=== PATIENT | male | born 1965 | race American Indian/Alaskan Native ===

== ENCOUNTER 2020-05-16 10:52 | Day surgery (SDC) | payer OTHER ==
[~2020-05-16 10:52] MED LIST: ACETAMINOPHEN 500 MG TAB PO SCH; BUPIVACAINE/PF (0.5%) 5 MG/1 ML 30 ML VIAL INFILTRATI ONE; GABAPENTIN 300 MG CAP PO NR; LIDOCAINE (1%) 10 MG/1 ML VIAL 20 ML MDV ONE; SODIUM CHLORIDE 0.9% 1000 ML 1,000 ML IV SCH; ceFAZolin/Water 2 GM/20 ML 2 GM/20 ML SYRINGE IV NR
[2020-05-16] MEDS ORDERED: GABAPENTIN 500 MG/10 ML ORAL LIQD PO NR (11:04)
[2020-05-16] MEDS ORDERED: fentaNYL 100 MCG/2 ML INJ IV PRN (11:16)
[2020-05-16] MEDS ORDERED: ONDANSETRON 4 MG/2 ML INJ IV PRN (11:16)
--- NOTE | 2020-05-16 11:16 | Anesthesia Consultation ---
Anesthesia Consult and Med Hx Date of service: 05/16/20 - Airway Anesthetic Teeth Evaluation: Good ROM Head & Neck: Adequate Mental/Hyoid Distance: Adequate Mallampati Class: Class III Intubation Access Assessment: Possibly Difficult - Pulmonary Exam CTA: Yes - Cardiac Exam Cardiac Exam: RRR - Pre-Operative Health Status ASA Pre-Surgery Classification: ASA3 Proposed Anesthetic Plan: General - Pulmonary Hx Smoking: No Hx Respiratory Symptoms: No Hx Sleep Apnea: No (VIDA PRE SCREEN HIGH RISK) - Cardiovascular System Hx Hypertension: Yes (took all antihypertensives this morning) Hx Heart Attack/AMI: No Hx Percutaneous Transluminal Coronary Angioplasty (PTCA): No Hx Cardia Arrhythmia: No - Central Nervous System CVA: No - Endocrine Hx End Stage Renal Disease: Yes (last HD 05/14/20) Hx Liver Disease: No Hx Insulin Dependent Diabetes: Yes Hx Thyroid Disease: No - Other Systems Hx Obesity: No - Additional Comments Anesthesia Medical History Comments: No hx anesthetic complications.
--- NOTE | 2020-05-16 11:16 | Anesthesia Day of Surgery ---
Anesthesia Day of Surgery - Day of Surgery Patient Examined: Yes Patient H&P Reviewed: Yes Patient is NPO: Yes Beta Blockers: Yes (carvedilol today AM)
[2020-05-16 11:45] LABS: Hematocrit 38.8 % (35.5-45.6); Hemoglobin 12.9 gm/dl (11.8-15.2); Mean Corpuscular HGB Conc 33 % (32-34); Mean Corpuscular Volume 96 fl (84-94); Platelet Count 172 K/mm3 (140-440); Red Blood Count 4.04 M/mm3 (3.65-5.03); Red Cell Distribution Width 14.7 % (13.2-15.2)
[2020-05-16 11:54] LABS: Calcium 9.1 mg/dL (8.4-10.2)
[2020-05-16] MEDS: MIDAZOLAM 2 MG/2 ML INJ IV NR ×2 (12:01→12:25)
[2020-05-16] MEDS ORDERED: HYDROmorphone 1 MG/1 ML INJ ONE (12:16)
[2020-05-16] MEDS ORDERED: ROCURONIUM 50 MG/5 ML INJ IV ONE ×2 (12:17→15:01)
[2020-05-16] MEDS ORDERED: LIDOCAINE MPF (2%) 20 MG/1 ML VIAL 5 ML ONE (12:17)
[2020-05-16] MEDS ORDERED: propofoL 200 MG/20 ML VIAL IV ONE (12:17)
[2020-05-16] MEDS ORDERED: HEPARIN 10,000 UNIT/1 ML VIAL ONE (12:22)
[2020-05-16] MEDS ORDERED: BUPIVACAINE/PF (0.5%) 5 MG/1 ML 30 ML VIAL INFILTRATI ONE (14:01)
[2020-05-16] MEDS ORDERED: LIDOCAINE (1%) 10 MG/1 ML VIAL 20 ML MDV INFILTRATI ONE (14:01)
[2020-05-16] MEDS ORDERED: WATER FOR IRRIG STERILE 1,500 ML BOTTLE IR ONE (14:02)
[2020-05-16] MEDS ORDERED: NEOSTIGMINE 10MG/10 ML INJ MDV ONE (15:01)
[2020-05-16] MEDS ORDERED: GLYCOPYRROLATE 0.4 MG/2 ML INJ ONE ×2 (15:01→15:07)
--- NOTE | 2020-05-16 15:03 | Short Stay Summary ---
Short Stay Documentation Date of service: 05/16/20 - History Principal diagnosis: incisional hernia, malfunctioning PD catheter H&P: obtained from office - Allergies and Medications Current Medications: Allergies lisinopril Allergy (Verified 05/11/20 12:16) COUGH Home Medications Medication Instructions Recorded Confirmed Last Taken Type Aspartame 10 gm MC DAILY 05/11/20 05/11/20 05/15/20 History Furosemide [Lasix TAB] 80 mg PO DAILY 05/11/20 05/11/20 05/15/20 History Insulin Glargine [Lantus VIAL] 0 units SUB-Q QHS 05/11/20 05/11/20 05/15/20 History Losartan [Cozaar] 50 mg PO QDAY 05/11/20 05/11/20 05/16/20 10:00 History NIFEdipine [Nifedipine ER] 60 mg PO DAILY 05/11/20 05/11/20 05/16/20 10:00 History Sevelamer Carbonate [Renvela] 800 mg PO TID 05/11/20 05/11/20 05/15/20 History Vit B Complx C/Folic Acid/Zinc 1 tab PO DAILY 05/11/20 05/11/20 05/15/20 History [Dialyvite 800-Zinc 15 mg Tab] carvediloL [Coreg] 25 mg PO BID 05/11/20 05/11/20 05/16/20 10:00 History hydrALAZINE [Apresoline] 25 mg PO TID 05/11/20 05/11/20 05/15/20 History Active Medications Acetaminophen (Tylenol) 1,000 mg PO PREOP CAROL Stop: 05/16/20 23:59 Last Admin: 05/16/20 11:48 Dose: 1,000 mg Documented by: Fentanyl (Sublimaze) 50 mcg IV Q5MIN PRN PRN Reason: Pain , Severe (7-10) Gabapentin (Gabapentin) 100 mg PO PREOP NR Stop: 05/16/20 15:00 Last Admin: 05/16/20 11:48 Dose: 100 mg Documented by: Cefazolin Sodium (Ancef/Sterile Water 2 Gm/20 Ml) 2 gm in 20 mls @ 80 mls/hr IV PREOP NR Stop: 05/16/20 18:00 Sodium Chloride (Nacl 0.9% 1000 Ml) 1,000 mls @ 42 mls/hr IV DIRECT CAROL Stop: 05/16/20 23:59 Last Admin: 05/16/20 11:30 Dose: 42 mls/hr Documented by: Midazolam HCl (Versed) 2 mg IV PREOP NR Stop: 05/16/20 23:59 Last Admin: 05/16/20 12:25 Dose: 2 mg Documented by: Ondansetron HCl (Zofran) 4 mg IV ONCE PRN PRN Reason: Nausea And Vomiting - Brief post op/procedure progress note Date of procedure: 05/16/20 Pre-op diagnosis: incisional hernia, malfunctioning PD catheter Post-op diagnosis: same Procedure: diagnostic laparoscopy, lysis of adhesions, primary repair of incisional hernia Anesthesia: GETA, local Findings: 1. Dense adhesions from from bowel, omentum, liver to anterior abdominal wall and pelvis 2. Portion of intraabdominal PD catheter visible (encased in fibrous capsule) but pelvic portion not visible due to dense adhesions 3. 2 cm infraumbilical incisional hernia Surgeon: TITUS JONES (Beau Parrish, [employer] LE[employer] 1st assist) Estimated blood loss: minimal Pathology: none Condition: stable - Hospital course Hospital course: Pt observed in PACU and discharged to home in stable condition when criteria met - Disposition Condition at discharge: Good Disposition: DC-01 TO HOME OR SELFCARE Short Stay Discharge Plan Activity: other (no heavy lifting x4-6 weeks) Diet: renal Wound: open to air Additional Instructions: Discharge instructions: Diet: Renal Activity: You are encouraged to walk and may go up and down the steps. Do not do any heavy lifting of more than 15 lbs for next 4-[address] if you are taking prescription, narcotic pain medications. Showering: You may shower in 1 day. Pat incisions dry, do not scrub. Do not submerge incision in bathtub, pool, hottub for 2 weeks. Wound care instructions: There is glue on your incisions which will fall off on its own. Pain medications: You are encouraged to use over the counter pain medications like Tylenol or i buprofen as directed on the bottle. You have been given a prescription for Crawford to use for pain not controlled with over the counter pain medications. If you have any unused Crawford, please return to your pharmacy to have is discarded. You may use ice pack to incisions to help with pain and bruising. Reasons to call Surgeons office: If you have fevers >100.4 If you are having increasing abdominal pain or vomiting If you have pain that is not controlled with prescription pain medications If you have drainage if pus or redness around the incisions. When to come back to see your Surgeon: Please call the office ([phone]) to make an appointment to see the surgeon in 2 week. Call if you have any questions. 11 [facility] Ground floor Follow up with: [facility] [Primary Care Provider] - 7 Days TITUS JONES DO [Staff Physician] - 14 Days Prescriptions: HYDROcodone/APAP 5-325 [[place] 5/325] 1 each PO Q6HR PRN #20 tablet PRN Reason: Pain
[2020-05-16] MEDS ORDERED: ONDANSETRON 4 MG/2 ML INJ ONE (15:07)
--- NOTE | 2020-05-16 16:15 | Operative Report ---
Operative Report Operative Report: Date of procedure: 05/16/20 Pre-op diagnosis: incisional hernia, malfunctioning PD catheter Post-op diagnosis: same Procedure: diagnostic laparoscopy, lysis of adhesions, primary repair of incisional hernia Anesthesia: GETA, local Findings: 1. Dense adhesions from from bowel, omentum, liver to anterior abdominal wall and pelvis 2. Portion of intraabdominal PD catheter visible (encased in fibrous capsule) but pelvic portion not visible due to dense adhesions 3. 2 cm infraumbilical incisional hernia Surgeon: TITUS JONES (Beau Parrish, [employer]ICE [employer] LEAD 1st assist) Estimated blood loss: minimal Pathology: none Condition: stable Hospital course: Pt observed in PACU and discharged to home in stable condition when criteria met HPI and indication: 54-year-old male with history of end-stage renal disease who was referred to the surgery clinic by the [place] for evaluation of nonfunctioning peritoneal dialysis catheter and a periumbilical incisional hernia. The patient had a recent hospitalization for peritonitis associated with the PD catheter which was managed with antibiotics. After this episode the PD catheter was no longer functioning and it was felt that he would require surgery for revision versus replacement. Preoperative CT scan was reviewed which showed the peritoneal dialysis catheter coiled in the pelvis and a small periumbilical hernia containing a knuckle of nonobstructed small bowel. I discussed a diagnostic laparoscopy with the patient with lysis of adhesions to possibly free up the catheter. We also discussed repair of the incisional hernia at the same time with possible use of mesh. The possibility of removing the catheter was also briefly discussed. All risk, benefits, alternatives to surgery were discussed with the patient and questions answered. Consent was obtained. Procedure in detail: The patient was identified in the preoperative area, taken back to operating room, and placed on the operating room table in supine position. After anesthesia was induced, a Carter catheter was sterilely placed b y the circulating nurse. The abdomen was prepped and draped in the usual sterile fashion and timeout performed. Patient had a right sided peritoneal dialysis catheter which was prepped into the field as well. Local anesthetic was infiltrated into skin at the intended incision sites. A Left upper quadrant incision was made at Booker's point through which a Veress needle was inserted. The Veress needle position was confirmed using the saline drop test and the abdomen insufflated to 15 mmHg without incident. Veress needle was then removed and a 5 mm Optiview trocar placed through the incision. The abdomen was inspected and there was no underlying injury to any abdominal structures. Upon inspection of the abdomen the small bowel, the majority of the omentum, a portion of the stomach, and the liver were densely adhered to the anterior abdominal wall. Only the upper portion of the abdomen could be visualized as the remainder of the abdomen was obscured by these adhesions. No additional ports could be placed. At this point I decided to perform a cutdown at the umbilicus at the known incisional hernia. Local anesthetic infiltrated to skin at the intended incision site. A infraumbilical incision was made through the patient's old surgical scar using a 15 blade. Dissection was carried down through the skin and subcutaneous tissue using Bovie electrocautery until the hernia was encountered. The hernia sac was gently dissected from the underside of the umbilicus with great care to prevent injury to the umbilical skin. A small incision was made in the hernia sac and using a gloved finger, gentle blunt dissection was performed in order to free of any adhesions to the peritoneum in the immediate area. A 12 mm port was able to be placed into the abdomen under direct visualization. Through this incision there was a small window to the pelvis. The intra-abdominal portion of the peritoneal dialysis catheter was visible. It was firmly adhesed to the anterior abdominal wall and encased in a dense fibrous capsule. The pelvic portion could not be visualized due to dense adhesions. An additional suprapubic 5 mm trocar was able to be placed under direct visualization. Using a laparoscopic grasper, I attempted to break up the flimsy adhesions using blunt dissection. Despite this, dense adhesions from the small bowel to the pelvis could not be dissected safely. At this point it was decided to abort any further lysis of adhesions due to high risk of injury to bowel. The abdomen was checked for hemostasis and carefully ensured. The abdomen was desufflated and the ports removed. Due to adhesions, there was not enough space to deploy an adequate sized mesh and therefore the umbilical hernia was repaired primarily using interrupted 0 Vicryl sutures. The wound was checked for hemostasis and irrigated. Hemostasis was carefully ensured. The umbilicus was tacked down to the fascia using a 2-0 Vicryl interrupted stitch. The deep dermal layer was closed with 2-0 Vicryl interrupted stitches and the skin of all the incisions approximated using 4-0 Monocryl subcuticular stitches and skin glue. At the end of the case all sponge, instrument, sharp counts were correct x2. The Carter catheter was removed. The patient was awoken from anesthesia extubated and taken to PACU in stable condition. The patient's was updated and intraoperative findings discussed.
[2020-05-16 16:33] VITALS: BP 122/61
--- NOTE | 2020-05-16 16:55 | Post Anesthesia Evaluation ---
- Post Anesthesia Evaluation Patient Participated: Yes Airway Patent: Yes Stable Respiratory Function: Yes Nausea/Vomiting: No Temp > 96.8F: Yes Pain Manageable: Yes Adequeate Hydration: Yes Anesthesia Complications: No
== END 2020-05-16 17:00 | disposition home or self-care (01) ==
LOC: OR 10:52
PROVIDERS: ATTEND Surgery
DX: K43.2 Incisional hernia without obstruction or gangrene (principal); K66.0 Peritoneal adhesions (postprocedural) (postinfection); Z20.828 Contact with and (suspected) exposure to other viral communicable diseases; T85.691A Other mechanical complication of intraperitoneal dialysis catheter, initial encounter; I12.0 Hypertensive chronic kidney disease with stage 5 chronic kidney disease or end stage renal disease; E11.22 Type 2 diabetes mellitus with diabetic chronic kidney disease; N18.6 End stage renal disease; Z98.890 Other specified postprocedural states; Z88.8 Allergy status to other drugs, medicaments and biological substances; Z79.899 Other long term (current) drug therapy; Z79.4 Long term (current) use of insulin; Z83.3 Family history of diabetes mellitus; Z80.8 Family history of malignant neoplasm of other organs or systems; Z72.89 Other problems related to lifestyle; Z82.49 Family history of ischemic heart disease and other diseases of the circulatory system; Y82.9 Unspecified medical devices associated with adverse incidents; Y92.89 Other specified places as the place of occurrence of the external cause
CPT/HCPCS: 36415; 49654; 80048; 82962; 85027; J0690; J1170; J2250; J2405; J2704; J2710; J7030; U0003; J1644

== ENCOUNTER 2020-06-08 10:24 | Day surgery (SDC) | payer OTHER ==
[~2020-06-08 10:24] MED LIST changes: -ACETAMINOPHEN 500 MG TAB PO SCH; +BUPIVACAINE/PF (0.25%) 2.5 MG/ML 30 ML VIAL INFILTRATI ONE; -BUPIVACAINE/PF (0.5%) 5 MG/1 ML 30 ML VIAL INFILTRATI ONE; -GABAPENTIN 300 MG CAP PO NR; -SODIUM CHLORIDE 0.9% 1000 ML 1,000 ML IV SCH; -ceFAZolin/Water 2 GM/20 ML 2 GM/20 ML SYRINGE IV NR
[2020-06-08] MEDS ORDERED: ONDANSETRON 4 MG/2 ML INJ IV PRN (10:53)
[2020-06-08] MEDS ORDERED: HYDROmorphone 1 MG/1 ML INJ IV PRN ×2 (10:53)
[2020-06-08] MEDS ORDERED: SODIUM CHLORIDE 0.9% 1000 ML 1,000 ML IV SCH (11:00)
[2020-06-08] MEDS ORDERED: ceFAZolin/STERILE WATER 2 GM/20 ML SYRINGE IV NR (11:00)
[2020-06-08] MEDS ORDERED: MIDAZOLAM 2 MG/2 ML INJ IV NR (11:00)
--- NOTE | 2020-06-08 11:02 | Anesthesia Day of Surgery ---
Anesthesia Day of Surgery - Day of Surgery Patient Examined: Yes Patient H&P Reviewed: Yes Patient is NPO: Yes Beta Blockers: Yes
--- NOTE | 2020-06-08 11:05 | Anesthesia Consultation ---
Anesthesia Consult and Med Hx Date of service: 06/08/20 - Airway Anesthetic Teeth Evaluation: Good ROM Head & Neck: Adequate Mental/Hyoid Distance: Adequate Mallampati Class: Class III Intubation Access Assessment: Probably Good - Pre-Operative Health Status ASA Pre-Surgery Classification: ASA3 Proposed Anesthetic Plan: General - Pulmonary Hx Smoking: No Hx Respiratory Symptoms: No Hx Sleep Apnea: No (VIDA PRE SCREEN HIGH RISK) - Cardiovascular System Hx Hypertension: Yes (X 2 YRS) Hx Heart Attack/AMI: No Hx Percutaneous Transluminal Coronary Angioplasty (PTCA): No Hx Cardia Arrhythmia: No - Central Nervous System CVA: No Hx Psychiatric Problems: No - Endocrine Hx Renal Disease: Yes (Last HD yesterday) Hx End Stage Renal Disease: Yes Hx Liver Disease: No Hx Insulin Dependent Diabetes: Yes Hx Thyroid Disease: No - Hematic Hx Anemia: No - Other Systems Hx Cancer: No Hx Obesity: No - Additional Comments Anesthesia Medical History Comments: Was here [id number]
[2020-06-08 11:46] LABS: Hematocrit 38.4 % (35.5-45.6); Hemoglobin 12.6 gm/dl (11.8-15.2); Mean Corpuscular HGB Conc 33 % (32-34); Mean Corpuscular Volume 94 fl (84-94); Platelet Count 172 K/mm3 (140-440); Red Blood Count 4.07 M/mm3 (3.65-5.03); Red Cell Distribution Width 15.1 % (13.2-15.2)
[2020-06-08] MEDS ORDERED: LIDOCAINE MPF (2%) 20 MG/1 ML VIAL 5 ML ONE (11:52)
[2020-06-08] MEDS ORDERED: fentaNYL 100 MCG/2 ML INJ ONE (11:52)
[2020-06-08] MEDS ORDERED: propofoL 200 MG/20 ML VIAL IV ONE (11:52)
[2020-06-08 11:59] LABS: Calcium 9.4 mg/dL (8.4-10.2)
[2020-06-08] MEDS ORDERED: DEXTROSE 50% IN WATER (25GM) 50 ML SYRINGE IV ONE (12:01)
[2020-06-08] MEDS ORDERED: DEXTROSE 50% IN WATER (25GM) 50 ML SYRINGE IV SCH (12:05)
[2020-06-08] MEDS ORDERED: ROCURONIUM 50 MG/5 ML INJ IV ONE (12:31)
[2020-06-08] MEDS ORDERED: PHENYLEPHRINE/NS 1,000 MCG/10 ML SYRINGE (OR USE) IV ONE (12:32)
[2020-06-08] MEDS ORDERED: ONDANSETRON 4 MG/2 ML INJ ONE (12:33)
[2020-06-08] MEDS ORDERED: LIDOCAINE (1%) 10 MG/1 ML VIAL 20 ML MDV INFILTRATI ONE (12:38)
[2020-06-08] MEDS ORDERED: BUPIVACAINE/PF (0.25%) 2.5 MG/ML 30 ML VIAL INFILTRATI ONE (12:39)
[2020-06-08] MEDS ORDERED: SODIUM CHLORIDE 0.9% IRR 1,000 ML BOTTLE IR ONE (12:39)
[2020-06-08] MEDS ORDERED: ePHEDrine SULFATE 50 MG/1 ML INJ ONE (12:43)
[2020-06-08] MEDS ORDERED: GLYCOPYRROLATE 0.4 MG/2 ML INJ ONE (12:47)
[2020-06-08] MEDS ORDERED: NEOSTIGMINE 10MG/10 ML INJ MDV ONE (12:47)
--- NOTE | 2020-06-08 13:28 | Short Stay Summary ---
"Short Stay Documentation Date of service: 06/08/20 - History Principal diagnosis: malfunctioning PD catheter H&P: obtained from office - Allergies and Medications Current Medications: Allergies lisinopril Allergy (Verified 05/11/20 12:16) COUGH Home Medications Medication Instructions Recorded Confirmed Last Taken Type Aspartame 10 gm MC DAILY 05/11/20 06/02/20 06/07/20 History Furosemide [Lasix TAB] 80 mg PO DAILY 05/11/20 06/02/20 06/07/20 History Insulin Glargine [Lantus VIAL] 0 units SUB-Q QHS 05/11/20 06/02/20 06/07/20 History Losartan [Cozaar] 50 mg PO QDAY 05/11/20 06/02/20 06/08/20 09:30 History NIFEdipine [Nifedipine ER] 60 mg PO DAILY 05/11/20 06/02/20 06/08/20 09:30 History Sevelamer Carbonate [Renvela] 800 mg PO TID 05/11/20 06/02/20 06/07/20 History Vit B Complx C/Folic Acid/Zinc 1 tab PO DAILY 05/11/20 06/02/20 06/07/20 History [Dialyvite 800-Zinc 15 mg Tab] carvediloL [Coreg] 25 mg PO BID 05/11/20 06/02/20 06/08/20 09:30 History hydrALAZINE [Apresoline TAB] 25 mg PO TID 05/11/20 06/02/20 06/08/20 09:30 History HYDROcodone/APAP 5-325 [[place] 1 each PO Q6HR PRN #20 tablet 05/16/20 06/02/20 06/07/20 Rx 5/325] Active Medications Cefazolin Sodium (Cefazolin/Sterile Water 2 Gm/20 Ml Syringe) 2 gm IV PREOP NR Stop: 06/08/20 23:59 Hydromorphone HCl (Hydromorphone 1 Mg/1 Ml Inj) 0.25 mg IV Q10MIN PRN PRN Reason: Pain, Moderate (4-6) Stop: 06/08/20 23:59 Hydromorphone HCl (Hydromorphone 1 Mg/1 Ml Inj) 0.5 mg IV Q10MIN PRN PRN Reason: Pain , Severe (7-10) Stop: 06/08/20 23:59 Sodium Chloride (Nacl 0.9% 1000 Ml) 1,000 mls @ 42 mls/hr IV DIRECT CAROL Last Admin: 06/08/20 11:10 Dose: 42 mls/hr Documented by: Midazolam HCl (Midazolam 2 Mg/2 Ml Inj) 2 mg IV PREOP NR Stop: 06/08/20 23:59 Last Admin: 06/08/20 11:25 Dose: 2 mg Documented by: Ondansetron HCl (Ondansetron 4 Mg/2 Ml Inj) 4 mg IV ONCE PRN PRN Reason: Nausea And Vomiting - Brief post op/procedure progress note Date of procedure: 06/08/20 Pre-op diagnosis: malfunctioning PD catheter Post-op diagnosis: same Procedure: removal of PD catheter Anesthesia: GETA, local Findings: Removal of entire PD catheter intact Surgeon: SHO JONES Estimated blood loss: minimal Pathology: list (PD cath for ID only) Specimen disposition: to lab Condition: stable - Hospital course Hospital course: Pt observed in PACU and discharged to home in stable condition when criteria met - Disposition Condition at discharge: Good Disposition: DC-01 TO HOME OR SELFCARE Short Stay Discharge Plan Activity: other (no driving if taking prescription pain medications) Diet: renal Wound: per your surgeon's advice Additional Instructions: General Surgery MD Sho Nelson, DO [address] | [place] [address] | F ([phone]) [email or web address] Patient discharge instructions You have undergone surgery to remove a PD catheter Diet: Renal diet Activity: You are encouraged to walk and may go up and down the steps. Do not drive if you are taking prescription, narcotic pain medications. Showering: You may remove outer dressing in 2 days and then shower. Pat incisions dry, do not scrub. Do not submerge incision in bathtub, pool, hottub for 2 weeks. Wound care instructions: Your incision is covered with steri-strips which will remain on incision and fall off on their own. There is a piece of gauze packed in the corner of the wound which you can remove in 2 days. After showering and patting the area dry, cover with dry gauze dressing daily for 10 days. Pain medications: You are encouraged to use over the counter pain medications like Tylenol or ibuprofen as directed on the bottle. You have been given a prescription to use for pain not controlled with over the counter pain medications. If you have any unused prescription pain medication, please return to your pharmacy to have is discarded. You may use ice pack to incisions to help with pain and bruising. Reasons to call Surgeons office: If you have fevers >100.4 If you are having increasing abdominal pain or vomiting If you have pain that is not controlled with prescription pain medications If you have drainage if pus or redness around the incisions. When to come back to see your Surgeon: Please call the office ([phone]) to make an appointment to see the surgeon in 10 days. Call if you have any questions. 11 [facility] Ground floor Follow up with: [facility] [Primary Care Provider] - 7 Days SHO JONES DO [Staff Physician] - 10 Days Prescriptions: HYDROcodone/APAP 5-325 [[place] 5-325 mg TAB] 1 each PO Q6HR PRN #10 tablet PRN Reason: Pain , Severe (7-10)"
[2020-06-08 14:14] VITALS: BP 138/68
--- NOTE | 2020-06-08 14:45 | Post Anesthesia Evaluation ---
- Post Anesthesia Evaluation Patient Participated: Yes Airway Patent: Yes Stable Respiratory Function: Yes Nausea/Vomiting: No Temp > 96.8F: Yes Pain Manageable: Yes Adequeate Hydration: Yes Anesthesia Complications: No Block Receding Appropriately: Not Applicable Patient on Ventilator: No
--- NOTE | 2020-06-08 16:59 | Operative Report ---
Operative Report Operative Report: Date of procedure: 06/08/20 Pre-op diagnosis: malfunctioning PD catheter Post-op diagnosis: same Procedure: removal of PD catheter Anesthesia: GETA, local Findings: Removal of entire PD catheter intact Surgeon: TITUS JONES Estimated blood loss: minimal Pathology: list (PD cath for ID only) Specimen disposition: to lab Condition: stable Hospital course: Pt observed in PACU and discharged to home in stable condition when criteria met HPI and indication: 55 yo M with malfunctioning PD catheter presenting for elective removal of PD catheter. All risks, benefits, alternatives to surgery discussed with patient and questions answered. Consent obtained. Procedure in detail. Patient identified in preoperative area and taken back to operating room, placed on operating room table in supine position. Anesthesia was induced. The abdomen and PD catheter were prepped and draped in the usual sterile fashion and time out performed. The skin was anesthetized with local anesthetic at the intended incision site. The catheter was palpated under the skin and the course marked with a marking pen. An incision was made from the exit site of the catheter inferiorly along the course of the catheter by approximately 3 cm using a 15 blade. Dissection was carried down through the skin and subcutaneous tissue using electrocautery. The catheter was grasped and the catheter dissected from the capsule using electrocautery. The subcutaneous cuff was first dissected and freed. The dissection was carried along the catheter until the preperitoneal cuff was identified. This was freed from the muscle using electrocautery and blunt dissection with a hemostat. Once this was circumfrentially dissected, the catheter was removed in its entirety intact. The wound was checked for hemostasis which was carefully ensured. The wound was irrigated. The fascia was approximated using an 0-vicryl interrupted stitch. The skin was approximated using 3-0 vicryl interrupted stitches. The skin was approximated using 4-0 monocryl running subcuticular stitch. The exit site of the catheter was left open and packed with one piece of telfa. Steristrips were placed across the incision. The incision was covered with 4x4 gauze and tegaderm. The PD catheter was passed off the table as a specimen for ID only. At the end of the case, all sponge, instrument, sharp counts were correct x2. The patient was awoken from anesthesia, extubated and taken to PACU in stable condition.
== END 2020-06-08 14:55 | disposition home or self-care (01) ==
LOC: OR 10:24
PROVIDERS: ATTEND Surgery
DX: T85.691A Other mechanical complication of intraperitoneal dialysis catheter, initial encounter (principal); Z20.828 Contact with and (suspected) exposure to other viral communicable diseases; I12.0 Hypertensive chronic kidney disease with stage 5 chronic kidney disease or end stage renal disease; E11.22 Type 2 diabetes mellitus with diabetic chronic kidney disease; N18.6 End stage renal disease; Z79.899 Other long term (current) drug therapy; Z88.8 Allergy status to other drugs, medicaments and biological substances; Z79.4 Long term (current) use of insulin; Z98.890 Other specified postprocedural states; Y82.8 Other medical devices associated with adverse incidents; Y92.89 Other specified places as the place of occurrence of the external cause
CPT/HCPCS: 36415; 49422; 80048; 82962; 85027; 88302; J0690; J2250; J2370; J2405; J2704; J2710; J3010; J7030; U0003

== ENCOUNTER 2020-11-14 09:44 | Emergency (ER) | payer OTHER ==
[2020-11-14 10:36] VITALS: BP 227/100
--- NOTE | 2020-11-14 11:06 | Event Note ---
ED Screening Note Date of service: 11/14/20 Time: 11:04 ED Screening Note: This is a 55-year-old male history of diabetes hypertension who presents to ED with nausea vomiting status post AV fistula placement yesterday. Also complaining of generalized abdominal pain. This initial assessment/diagnostic orders/clinical plan/treatment(s) is/are subject to change based on patients health status, clinical progression and re- assessment by fellow clinical providers in the ED. Further treatment and workup at subsequent clinical providers discretion. Patient/guardian urged not to elope from the ED as their condition may be serious if not clinically assessed and managed. Initial orders include: labs, BP control FBG
[2020-11-14] MEDS ORDERED: ONDANSETRON 4 MG ODT TAB ONE (11:15)
[2020-11-14 12:36] LABS: Basophils % (Auto) 0.2 % (0.0-1.8); Eosinophils % (Auto) 0.2 % (0.0-4.3); Hematocrit 30.1 % (35.5-45.6); Hemoglobin 10.2 gm/dl (11.8-15.2); Lymphocytes # (Auto) 1.1 K/mm3 (1.2-5.4); Lymphocytes % (Auto) 7.6 % (13.4-35.0); Mean Corpuscular HGB Conc 34 % (32-34); Mean Corpuscular Volume 97 fl (84-94); Monocytes # (Auto) 1.1 K/mm3 (0.0-0.8); Monocytes % (Auto) 7.7 % (0.0-7.3); Platelet Count 188 K/mm3 (140-440); Red Blood Count 3.09 M/mm3 (3.65-5.03); Red Cell Distribution Width 13.9 % (13.2-15.2)
[2020-11-14 14:16] LABS: Albumin 4.2 g/dL (3.9-5); Calcium 9.9 mg/dL (8.4-10.2)
== END 2020-11-14 14:00 ==
LOC: ED 09:44
DX: R11.2 Nausea with vomiting, unspecified (principal); Z53.21 Procedure and treatment not carried out due to patient leaving prior to being seen by health care provider
CPT/HCPCS: 36415; 80053; 83690; 85025; Q0162